=== PATIENT | female | born 1980 | race Caucasian/White ===

== ENCOUNTER 2018-07-08 20:31 | Emergency (ER) | payer BC ==
--- NOTE | 2018-07-08 23:12 | ER Document Report ---
ED General - General Chief Complaint: Anxiety Stated Complaint: ANXIETY Time Seen by Provider: 07/08/18 23:11 Primary Care Provider: MANUELITO TEJEDA DO [NO LOCAL MD] - Follow up as needed Mode of Arrival: Ambulatory Information source: Patient Notes: Patient is a 38-year-old female with a past medical history of lupus, PTSD, chronic anxiety, and fibromyalgia who presents with increased anxiety after running out of her Xanax 2 days ago. Patient states that she normally takes 1 mg twice daily, often requiring 3 times daily, however she is switching physicians and ran out of her prescription 2 days ago. Onset: Today Provocation: None Quality: Anxious Radiation: None Severity: Mild to moderate Timing: Constant Suicidal ideation: None TRAVEL OUTSIDE OF THE [place] IN LAST 30 DAYS: No - HPI Similar symptoms previously: No Recently seen / treated by doctor: No Past Medical History - General Information source: Patient - Social History Smoking Status: Never Smoker Chew tobacco use (# tins/day): No Frequency of alcohol use: None Drug Abuse: None Lives with: Family Family History: Reviewed & Not Pertinent Patient has suicidal ideation: No Patient has homicidal ideation: No - Past Medical History Cardiac Medical History: Reports: None Pulmonary Medical History: Reports: None EENT Medical History: Reports: None Neurological Medical History: Reports: None Endocrine Medical History: Reports: None Renal/ Medical History: Reports: None Malignancy Medical History: Reports: None GI Medical History: Reports: None Musculoskeletal Medical History: Reports Hx Fibromyalgia Skin Medical History: Reports None Psychiatric Medical History: Reports: Hx Anxiety, Hx Attention Deficit Hyperactivity Disorder, Hx Post Traumatic Stress Disorder Traumatic Medical History: Reports: None Infectious Medical History: Reports: None Surgical Hx: Negative Past Surgical History: Reports: None - Immunizations Immunizations up to date: Yes Hx Diphtheria, Pertussis, Tetanus Vaccination: Yes History of Influenza Vaccine for 03/2017 - 08/2017 Season: Unknown Review of Systems - Review of Systems Notes: REVIEW OF SYSTEMS: CONSTITUTIONAL : Denies fever, chills, or sweats. Denies recent illness. EENT: Denies eye, ear, throat, or mouth pain or symptoms. Denies nasal or sinus congestion. CARDIOVASCULAR: Denies chest pain. RESPIRATORY: Denies cough, cold, or chest congestion. Denies shortness of breath, difficulty breathing, or wheezing. GASTROINTESTINAL: Denies abdominal pain. Denies nausea, vomiting, or diarrhea. Denies constipation. Last BM: GENITOURINARY: Denies difficulty urinating, painful urination, burning, frequency, or blood in urine. FEMALE GENITOURINARY: Denies vaginal bleeding, abnormal or irregular periods. MUSCULOSKELETAL: Denies neck or back pain or joint pain or swelling. SKIN: Denies rash or skin lesions. HEMATOLOGIC : Denies easy bruising or bleeding. LYMPHATIC: Denies swollen, enlarged glands. NEUROLOGICAL: Denies altered mental status or loss of consciousness. Denies headache. Denies weakness or paralysis or loss of use of either side. Denies problems with gait or speech. Denies sensory or motor loss. PSYCHIATRIC: Positive anxiety, denies hallucinations or delusions, denies suicidal or homicidal thoughts. ALL OTHER SYSTEMS REVIEWED AND NEGATIVE. -: Yes All other systems reviewed and negative Physical Exam - Vital signs Vitals: Temp Pulse Resp BP Pulse Ox 98.2 F 86 16 138/90 H 99 07/08/18 22:17 07/08/18 22:17 07/08/18 22:17 07/08/18 22:17 07/08/18 22:17 Interpretation: Tachycardic - Notes Notes: PHYSICAL EXAMINATION: GENERAL: Well-appearing, well-nourished and in no acute distress. HEAD: Atraumatic, normocephalic. EYES: Pupils equal round and reactive to light, extraocular movements intact, sclera anicteric, conjunctiva are normal. ENT: nares patent, oropharynx clear without exudates. Moist mucous membranes. NECK: Normal range of motion, supple without lymphadenopathy LUNGS: Breath sounds clear to auscultation bilaterally and equal. No wheezes rales or rhonchi. HEART: Regular rate and rhythm without murmurs ABDOMEN: Soft, nontender, normoactive bowel sounds. No guarding, no rebound. No masses appreciated. EXTREMITIES: Normal range of motion, no pitting or edema. No cyanosis. NEUROLOGICAL: No focal neurological deficits. Moves all extremities spontaneously and on command. PSYCH: Anxious appearing with slightly depressed mood, normal affect. SKIN: Warm, Dry, normal turgor, no rashes or lesions noted. Course - Re-evaluation Re-evalutation: 07/09/18 02:41 Patient initially appeared either anxious or possibly withdrawing from Xanax. She initially was given 5 mg of oral Valium with mild improvement but states she still feels anxious. She does have follow-up scheduled with a new provider as well as a psychiatrist in the next week. We have agreed to provide the patient with a one-week prescription of Xanax. She will be discharged home with return precautions and follow-up. Patient states she understands and agrees with the plan. - Vital Signs Vital signs: Temp Pulse Resp BP Pulse Ox 98.2 F 86 16 138/90 H 99 07/08/18 22:17 07/08/18 22:17 07/08/18 22:17 07/08/18 22:17 07/08/18 22:17 Discharge - Discharge Clinical Impression: Chronic anxiety, Benzodiazepine withdrawal without complication Condition: Good Disposition: HOME, SELF-CARE Instructions: [facility] ([facility] Additional Instructions: You have been evaluated in the Emergency Department for anxiety and early withdrawal from Xanax. Please follow-up with your primary physician as well as a psychiatrist as scheduled. Return to the Emergency Department if you experience racing thoughts, thoughts of harming herself, or any other concerning symptoms. Prescriptions: Alprazolam [Xanax Xr 1 mg Tablet Extended Release] 1 tab PO BID #14 tab.sr Print Language: [place]araguan
[2018-07-08] MEDS ORDERED: DIAZEPAM 5 MG TABLET PO ONE (23:58)
[2018-07-09 03:07] VITALS: BP 117/55
== END 2018-07-09 03:11 | disposition home or self-care (01) ==
LOC: ER 20:31
DX: F41.9 Anxiety disorder, unspecified (principal); F15.93 Other stimulant use, unspecified with withdrawal; M79.7 Fibromyalgia; F43.10 Post-traumatic stress disorder, unspecified
CPT/HCPCS: 99283

== ENCOUNTER 2018-11-24 21:45 | Emergency (ER) | payer BC ==
[2018-11-25] MEDS ORDERED: LORAZEPAM 1 MG TABLET PO ONE (00:52)
--- NOTE | 2018-11-25 01:19 | RADIOLOGY REPORT (SQ) ---
EXAM DESCRIPTION: XR CHEST 1 VIEW COMPLETED DATE/TME: 11/25/2018 00:52 CLINICAL HISTORY: 38 years, Female, sob Comparison: None FINDINGS: No focal lung consolidation. No pleural effusion. No pneumothorax. Cardiac and mediastinal silhouette is unremarkable. No acute osseous abnormality. Soft tissues are unremarkable. IMPRESSION: No acute findings. No focal lung consolidation.
--- NOTE | 2018-11-25 01:56 | ER Document Report ---
ED General - General Chief Complaint: Anxiety Stated Complaint: ANXIETY/SHORTNESS OF BREATH Time Seen by Provider: 11/25/18 00:52 Primary Care Provider: SUPA LEMONS MD [EMERITUS] - Follow up tomorrow Notes: Patient is a 38-year-old female with past medical history of lupus, fibromyalgia, chronic anxiety, presents with complaints of being out of Xanax and feeling somewhat short of breath. The patient states that she normally takes Xanax 1 mg 2-3 times daily. She states that she was recently informed by her primary care doctor that they could no longer prescribe this medication in conjunction with opiate pain medications at the same time. She states that her last dose was taken earlier this morning and since that time she has been feeling increasingly anxious. She states that she has become somewhat short of breath with this anxiety and that this is a very typical symptom for her when she becomes anxious. Symptoms started gradually, severe in nature, constant since onset. No obvious exacerbating or alleviating factors. States she is felt like this many times in the past when she has had anxiety. TRAVEL OUTSIDE OF THE [place] IN LAST 30 DAYS: No - Related Data Allergies/Adverse Reactions: meperidine [From Demerol] Allergy (Mild, Verified 11/24/18 21:52) Sulfa (Sulfonamide Antibiotics) Allergy (Mild, Verified 11/24/18 21:51) Past Medical History - General Information source: Patient - Social History Smoking Status: Never Smoker Chew tobacco use (# tins/day): No Frequency of alcohol use: None Drug Abuse: None Lives with: Spouse/Significant other Family History: Reviewed & Not Pertinent Patient has suicidal ideation: No Patient has homicidal ideation: No Renal/ Medical History: Denies: Hx Peritoneal Dialysis Musculoskeletal Medical History: Reports Hx Fibromyalgia Psychiatric Medical History: Reports: Hx Anxiety, Hx Attention Deficit Hyperactivity Disorder, Hx Post Traumatic Stress Disorder - Immunizations Immunizations up to date: Yes Hx Diphtheria, Pertussis, Tetanus Vaccination: Yes Review of Systems - Review of Systems Notes: Constitutional: Negative for fever. HENT: Negative for sore throat. Eyes: Negative for visual changes. Cardiovascular: Negative for chest pain. Respiratory: Positive for shortness of breath. Gastrointestinal: Negative for abdominal pain, vomiting or diarrhea. Genitourinary: Negative for dysuria. Musculoskeletal: Negative for back pain. Skin: Negative for rash. Neurological: Negative for headaches, weakness or numbness. 10 point ROS negative except as marked above and in HPI. Physical Exam - Vital signs Vitals: Temp Pulse Resp BP Pulse Ox 98.3 F 130 H 20 134/87 H 98 11/24/18 22:13 11/24/18 22:13 11/24/18 22:13 11/24/18 22:13 11/24/18 22:13 Interpretation: Tachycardic Notes: PHYSICAL EXAMINATION: GENERAL: Well-appearing, well-nourished and in no acute distress. HEAD: Atraumatic, normocephalic. EYES: Pupils equal round and reactive to light, extraocular movements intact, sclera anicteric, conjunctiva are normal. ENT: nares patent, oropharynx clear without exudates. Moist mucous membranes. NECK: Normal range of motion, supple without lymphadenopathy LUNGS: Breath sounds clear to auscultation bilaterally and equal. No wheezes rales or rhonchi. HEART: Regular rate and rhythm without murmurs ABDOMEN: Soft, nontender, normoactive bowel sounds. No guarding, no rebound. No masses appreciated. EXTREMITIES: Normal range of motion, no pitting or edema. No cyanosis. NEUROLOGICAL: No focal neurological deficits. Moves all extremities spontaneously and on command. PSYCH: Anxious, loquacious SKIN: Warm, Dry, normal turgor, no rashes or lesions noted. Course - Re-evaluation Re-evalutation: 11/25/18 01:55 Patient presents with complaints of feeling short of breath and very anxious. The patient states that this is likely due to running out of her Xanax with her last dose being this morning and normally she takes this 3 times daily. States that her primary care doctor states that this medication to her. She states that she has had similar symptoms many times in the past whenever she runs out of medication. The patient was initially quite tachycardic at time of presentation although heart rate was 90 at the time of my assessment after receiving oral Ativan. She denies any component of pleuritic discomfort, no history of DVT or pulmonary embolus. Very low clinical suspicion for pulmonary illness and I do not believe it would be appropriate to pursue d-dimer testing or CTA given patient's characterization of her symptoms despite her initial tachycardia. She also denies any chest pain of any kind. EKG shows sinus tachycardia without any additional findings. I have advised the patient that unfortunately cannot prescribe Xanax as an outpatient and do not believe that this medication is appropriate for long-term use. Patient became quite upset about me declining to provide her benzodiazepines as a prescription. I again emphasized the patient that I am uncomfortable prescribing controlled substances for outpatient use that the patient has been on chronically and moreover I do not use Xanax under any circumstances. Patient states that she is allergic to hydroxyzine and therefore cannot take this medication. At this time will discharge with return precautions and follow-up recommendations. Verbal discharge instructions given a the bedside and opportunity for questions given. Medication warnings reviewed. Patient is in agreement with this plan and has verbalized understanding of return precautions and the need for primary care follow-up in the next 24-72 hours. - Vital Signs Vital signs: Temp Pulse Resp BP Pulse Ox 97.9 F 130 H 15 120/86 H 95 11/25/18 02:00 11/24/18 22:13 11/25/18 02:00 11/25/18 02:00 11/25/18 02:00 - Diagnostic Test Radiology reviewed: Image reviewed, Reports reviewed Radiology results interpreted by me: 11/25/18 01:56 Chest x-ray: No acute infiltrate or pneumothorax - EKG Interpretation by Me Additional EKG results interpreted by me: 11/25/18 01:56 Sinus tachycardia, rate 112, no ST elevations or depressions. QTC is 459. Discharge - Discharge Clinical Impression: Anxiety, Shortness of breath Condition: Good Disposition: HOME, SELF-CARE Instructions: Anxiety ([facility]) Additional Instructions: You need to follow-up with your general physician regarding needs for refills of your Xanax as we are unfortunately unable to prescribe this medication from the emergency department. You may use Benadryl 50 mg every 6 hours as needed for severe anxiety. Please follow-up with your primary health provider within the next 24 hours. Return to the emergency department immediately if you develop shakiness, develop a seizure, vomiting, confusion, or any other symptoms that are worrisome to you. Please also return if you develop any thoughts of wanting to harm yourself or others. Referrals: SUPA LEMONS MD [EMERITUS] - Follow up tomorrow
[2018-11-25 02:21] VITALS: BP 120/86
--- NOTE | 2018-11-25 07:44 | EKG REPORT ---
SEVERITY:- OTHERWISE NORMAL ECG - SINUS TACHYCARDIA BORDERLINE RIGHT AXIS DEVIATION : Confirmed by: Aquilino Baca MD 25-Nov-2018 07:43:41
== END 2018-11-25 02:24 | disposition home or self-care (01) ==
LOC: ER 21:45
DX: F41.9 Anxiety disorder, unspecified (principal); R06.02 Shortness of breath; Z88.2 Allergy status to sulfonamides
CPT/HCPCS: 71045; 93005; 93010; 99283

== ENCOUNTER → 2019-11-24 | Outpatient (CLI) | payer BC | LOC: SP 09:57 | PROVIDERS: ATTEND Physician Assistant | DX: I73.9 Peripheral vascular disease, unspecified (principal) | CPT/HCPCS: 93925 ==